=== PATIENT | male | born 1935 | race Caucasian/White ===

== ENCOUNTER 2018-04-06 05:23 | Day surgery (SDC) | payer OTHER ==
[~2018-04-06] VITALS: Ht 182.9 cm; Wt 83.9 kg
--- NOTE | ~2018-04-06 | O ---
[facility] [place] [address] OPERATIVE REPORT Name: FANG LUCIO Room #: DEP [facility].#: [id number] Admission: 04/06/18 Attend Phys: Mao Mcmullen MD Discharge: 04/06/18 Date of : 33 Report #: [id number] THIS REPORT FOR: //name// CC: Eric Mcmullen INFANT CHILDCARE PROVIDER: None. PREOPERATIVE DIAGNOSIS: Bilateral upper lid ptosis with superior visual field defects both eyes. POSTOPERATIVE DIAGNOSIS: Bilateral upper lid ptosis with superior visual field defects both eyes. OPERATION PERFORMED: Bilateral upper lid functional ptosis repair. INFANT CHILDCARE PROVIDER: None. ANESTHESIA: Local with IV sedation. COMPLICATIONS: None. INDICATIONS FOR PROCEDURE: This patient has bilateral upper lid ptosis with superior visual field loss both eyes. Visual field testing demonstrates dense superior visual defects. Retesting with the upper lid elevated shows an improvement in visual field loss of over 30% and in excess of 12 degrees. The current procedure is being undertaken in order to improve the patient's visual function. Informed consent was obtained to include but not limited to the risk of loss of vision, bleeding, infection, scarring, failure to improve the problem and need for further surgery, such as adjustment of lid height. DESCRIPTION OF PROCEDURE: The patient was taken to the operating room, where 2% Xylocaine with epinephrine mixed with equal parts of 0.75% Marcaine with Wydase was administered transcutaneously to each upper lid. The patient was then prepped and draped in the usual sterile fashion. An upper lid crease incision was then made bilaterally and the dissection was carried down until the orbital septum was identified. The orbital septum was then cleared and the preaponeurotic fat identified. The levator aponeurosis was then disinserted from the anterior surface of the tarsal plate and dissected free in the avascular Beaver's muscle plane. The aponeurosis was then advanced and reattached to the anterior surface of the tarsal plate with interrupted mattress 6-0 Novafil sutures on each side, adjusting for height and contour. [address] [address] OPERATIVE REPORT Name: FANG LUCIO Room #: DEP [facility] M.R.#: [id number] Admission: 04/06/18 Attend Phys: Mao Mcmullen MD Discharge: 04/06/18 Date of : 34 Report #: [id number] The redundant aponeurosis was then amputated. The incision was then closed with multiple interrupted 6-0 chromic sutures that were used to recreate an upper lid crease. The skin was closed with a running 6-0 plain gut suture. The wound was then cleaned and dressed with ophthalmic antibiotic ointment followed by a Telfa pad. The patient was transported to the recovery area, having tolerated the procedure well with no anesthesia or operative complications being noted. <ELECTRONICALLY SIGNED> By: Mao Mcmullen MD 04/10/18 0621 5 Mao Mcmullen MD /brandy
[~2018-04-06 05:23] MED LIST: AMOXICILLIN 50500 MG PO; CENTRUM SILVER1 EAC4 PO; CHILDREN'S ASPI81 M1 PO; COREG25 MG PO; ELIQUIS5 MG PO; FISH OIL 1,001000 M2 PO; FLOMAX0.4 MG PO; GLUCOSAMINE &1 EACH PO; IRON325 PO; LISINOPRIL5 MG PO; METAMUCIL1 EAC1 PO; OMEPRAZOLE 20 M20 M1 PO; PACERONE 200 M200 M1 PO; REQUIP 1 MG TABL1 M1 PO; TYLENOL EXTRA500 MG PO; ZOCOR 10 MG TAB10 MG PO
[2018-04-06 07:55] VITALS: BP 113/73
== END 2018-04-06 08:30 | disposition home or self-care (01) ==
LOC: OR 05:23 → TBA 05:23 → OR 08:30
DX: H02.403 Unspecified ptosis of bilateral eyelids (principal); H53.462 Homonymous bilateral field defects, left side; H53.461 Homonymous bilateral field defects, right side; I10 Essential (primary) hypertension; E78.5 Hyperlipidemia, unspecified; G47.33 Obstructive sleep apnea (adult) (pediatric); I25.2 Old myocardial infarction; I42.9 Cardiomyopathy, unspecified; K21.9 Gastro-esophageal reflux disease without esophagitis; E78.00 Pure hypercholesterolemia, unspecified; Z90.49 Acquired absence of other specified parts of digestive tract; Z98.890 Other specified postprocedural states; Z95.0 Presence of cardiac pacemaker; Z87.891 Personal history of nicotine dependence; Z79.899 Other long term (current) drug therapy; Z79.82 Long term (current) use of aspirin
CPT/HCPCS: 50010; 50101; 50386; 50398; 51636; 56528; 56531; 62110; 62850; 70005

== ENCOUNTER 2018-09-01 12:20 | Emergency (ER) | payer OTHER ==
[~2018-09-01] VITALS: Ht 182.9 cm; Wt 81.7 kg
[2018-09-01 12:56] LABS: ABSOLUTE NEUTROPHILS 4.6 thou/uL (1.4-8.2); EOSINOPHILS 3.4 % (0.0-3.0); HEMATOCRIT 38.3 % (42.0-52.0); HEMOGLOBIN 12.7 gm/dL (14.0-18.0); LYMPHOCYTES 22.6 % (24.0-44.0); MCH 29.7 pg (26.0-34.0); MCHC 33.2 g/dL (28.0-37.0); MCV 89.2 fL (80.0-100.0); MONOCYTES 7.9 % (1.0-8.0); PLATELET COUNT 207 thou/uL (150-400); POLYS 65.1 % (36.0-66.0); RDW 13.8 % (10.5-14.5)
[2018-09-01 13:05] LABS: ANION GAP 7 mmol/L (7-16); BUN 19 mg/dL (7-18); CALCIUM 9.6 mg/dL (8.5-10.1); CHLORIDE 104 mmol/L (98-107); CO2 29 mmol/L (21-32); CREATININE 1.3 mg/dL (0.7-1.3); GLUCOSE 134 mg/dL (74-106); POTASSIUM 4.3 mmol/L (3.5-5.1); SODIUM 140 mmol/L (136-145)
[2018-09-01 13:13] LABS: SGOT 25 U/L (15-37); SGPT 31 U/L (30-65); TOTAL BILIRUBIN 0.6 mg/dL (<0.1-1.0); TOTAL PROTEIN 8.1 g/dL (6.4-8.2); TROPONIN-I <0.06 ng/mL (<0.06)
[2018-09-01] MEDS ORDERED: GABAPENTIN 100100 MG PO (13:21)
[2018-09-01] MEDS ORDERED: VALIUM2 MG PO (13:30)
[2018-09-01] MEDS ORDERED: ANTIVERT25 MG PO (13:32)
--- NOTE | 2018-09-01 14:06 | EKG ---
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[place] : 1935 Requested By: Sanchez Ahmadi Order Number: [id number] MD: Sam Gee Measurements Intervals [place] Rate: 51 P: 3 LA: 174 QRS: -44 QRSD: 175 T: 128 QT: 536 QTc: 494 Interpretive Statements Sinus bradycardia Left bundle branch block No previous ECG available for comparison Electronically Signed On 09-01-2018 14:06:21 CDT by Sam Gee [email or web address] ��������������������������������������������� <ELECTRONICALLY SIGNED> ���������������������������������������� By: Sam Gee MD ��������������������������������������������� 09/01/18 1406 1235 1235 Sam Gee MD /EPI
[2018-09-01 14:39] VITALS: BP 135/67
== END 2018-09-01 14:40 | disposition home or self-care (01) ==
LOC: ER 12:20
PROVIDERS: Emergency Medicine
DX: I95.1 Orthostatic hypotension (principal); H81.10 Benign paroxysmal vertigo, unspecified ear; R42 Dizziness and giddiness; K21.9 Gastro-esophageal reflux disease without esophagitis; I10 Essential (primary) hypertension; E78.5 Hyperlipidemia, unspecified; G25.81 Restless legs syndrome; I42.9 Cardiomyopathy, unspecified; G47.30 Sleep apnea, unspecified; Z90.49 Acquired absence of other specified parts of digestive tract; Z87.891 Personal history of nicotine dependence

== ENCOUNTER 2020-02-25 10:15 | Emergency (ER) | payer MEDICARE ==
[~2020-02-25] VITALS: Ht 182.9 cm; Wt 79.4 kg
[~2020-02-25 10:15] MED LIST changes: +ANTIVERT25 MG PO; +NEURONTIN 400M400 M2 PO; +VALIUM2 MG PO
[2020-02-25 10:52] LABS: ABSOLUTE NEUTROPHILS 6.1 thou/uL (1.4-8.2); BASOPHILS 0.6 % (0.0-2.0); EOSINOPHILS 0.5 % (0.0-3.0); HEMATOCRIT 31.8 % (42.0-52.0); HEMOGLOBIN 10.2 gm/dL (14.0-18.0); LYMPHOCYTES 12.7 % (24.0-44.0); MCH 24.7 pg (26.0-34.0); MCHC 32.2 g/dL (28.0-37.0); MCV 76.8 fL (80.0-100.0); MONOCYTES 8.3 % (1.0-8.0); PLATELET COUNT 187 thou/uL (150-400); POLYS 77.9 % (36.0-66.0); RBC 4.14 mil/uL (4.50-6.00); RDW 22.3 % (10.5-14.5); WBC 7.9 thou/uL (4.0-11.0)
[2020-02-25 11:01] LABS: CALCIUM 8.8 mg/dL (8.5-10.1); CREATININE 1.4 mg/dL (0.7-1.3); POTASSIUM 3.9 mmol/L (3.5-5.1)
[2020-02-25 11:07] LABS: ALBUMIN 3.3 g/dL (3.4-5.0); DIRECT BILIRUBIN 0.1 mg/dL (<0.1-0.2); TOTAL BILIRUBIN 0.4 mg/dL (0.2-1.0); TOTAL PROTEIN 7.8 g/dL (6.4-8.2)
[2020-02-25 11:59] LABS: URINE BILIRUBIN NEGATIVE (Negative); URINE BLOOD 3+ (Negative); URINE CLARITY CLEAR; URINE COLOR YELLOW; URINE GLUCOSE-RANDOM* NEGATIVE (Negative); URINE KETONES NEGATIVE (Negative); URINE LEUKOCYTES-REFLEX NEGATIVE (Negative); URINE NITRITE-REFLEX NEGATIVE (Negative); URINE PROTEIN (DIPSTICK) NEGATIVE (Negative); URINE UROBILINOGEN 0.2 E.U./dl (0.2-1.0)
[2020-02-25 12:10] LABS: ANISOCYTOSIS 2+
[2020-02-25 12:11] LABS: MACROCYTES SLIGHT; MICROCYTES 1+; POIKILOCYTOSIS SLIGHT
[2020-02-25 12:12] LABS: OVALOCYTES OCCASIONAL
[2020-02-25 12:20] LABS: HYALINE CASTS 0-3 Few /LPF (None Seen)
[2020-02-25 12:21] LABS: CRYSTALS None Seen /LPF (None Seen); MUCUS 4-6 Moderate strn/LPF (None Seen); URINE RBC >20 Many /HPF (0-2); URINE WBC-REFLEX 0-5 Rare /HPF (0-5)
[2020-02-25 12:23] LABS: BACTERIA-REFLEX 1-9 Few /HPF (None Seen)
[2020-02-25 12:26] LABS: SQUAMOUS 4-10 Moderate /LPF (0-3); TRANSITIONAL EPITHEL CELL 0-3 Few /LPF (None Seen)
[2020-02-25 15:51] VITALS: BP 132/71
--- NOTE | 2020-02-26 04:43 | NUR ---
GRAM + COCCI SUGGESTIVE OF STAPH POSITIVE BLOOD CULTURE CALLED BY HAMZAH IN LAB
[2020-02-26] MEDS ORDERED: MEXILETINE HCL200 M1 PO (13:51)
[2020-02-26] MEDS ORDERED: IRON18 M1 PO ×2 (13:53→13:54)
== END 2020-02-25 15:52 | disposition home or self-care (01) ==
LOC: ER 10:15
PROVIDERS: Emergency Medicine
DX: R50.9 Fever, unspecified (principal); R53.1 Weakness; R25.1 Tremor, unspecified; Z20.828 Contact with and (suspected) exposure to other viral communicable diseases; K21.9 Gastro-esophageal reflux disease without esophagitis; I10 Essential (primary) hypertension; E78.5 Hyperlipidemia, unspecified; I25.2 Old myocardial infarction; Z90.49 Acquired absence of other specified parts of digestive tract; Z79.899 Other long term (current) drug therapy; Z79.82 Long term (current) use of aspirin; Z87.891 Personal history of nicotine dependence

== ENCOUNTER 2020-02-26 10:35 | Inpatient (IN) | payer MEDICARE ==
[~2020-02-26] VITALS: Ht 182.9 cm; Wt 80.3 kg
[2020-02-26] VITALS (7 sets, daily range): BP systolic 93–113; BP diastolic 42–64
[2020-02-26 11:09] LABS: HEMATOCRIT 32.2 % (42.0-52.0); HEMOGLOBIN 10.3 gm/dL (14.0-18.0); MCH 24.3 pg (26.0-34.0); MCHC 31.8 g/dL (28.0-37.0); MCV 76.4 fL (80.0-100.0); PLATELET COUNT 173 thou/uL (150-400); RBC 4.22 mil/uL (4.50-6.00); RDW 22.8 % (10.5-14.5); WBC 8.9 thou/uL (4.0-11.0)
[2020-02-26 11:17] LABS: CALCIUM 8.3 mg/dL (8.5-10.1); CREATININE 1.3 mg/dL (0.7-1.3); POTASSIUM 4.3 mmol/L (3.5-5.1)
[2020-02-26 11:23] LABS: ALBUMIN 3.2 g/dL (3.4-5.0); DIRECT BILIRUBIN 0.2 mg/dL (<0.1-0.2); TOTAL BILIRUBIN 0.7 mg/dL (0.2-1.0); TOTAL PROTEIN 7.8 g/dL (6.4-8.2)
[2020-02-26 11:32] LABS: ABSOLUTE NEUTROPHILS 7.4 thou/uL (1.4-8.2); ANISOCYTOSIS 2+; PLATELET ESTIMATE NORMAL
[2020-02-26 12:01] LABS: URINE BILIRUBIN NEGATIVE (Negative); URINE BLOOD TRACE (Negative); URINE CLARITY CLEAR; URINE COLOR YELLOW; URINE GLUCOSE-RANDOM* NEGATIVE (Negative); URINE KETONES NEGATIVE (Negative); URINE LEUKOCYTES-REFLEX NEGATIVE (Negative); URINE NITRITE-REFLEX NEGATIVE (Negative); URINE PROTEIN (DIPSTICK) 1+ (Negative); URINE SPECIFIC GRAVITY >= 1.030 (1.005-1.035); URINE UROBILINOGEN 0.2 E.U./dl (0.2-1.0)
[2020-02-26 12:23] LABS: BACTERIA-REFLEX 1-9 Few /HPF (None Seen); CASTS None Seen /LPF (None Seen); CRYSTALS None Seen /LPF (None Seen); MUCUS >6 Heavy strn/LPF (None Seen); SQUAMOUS 0-3 Few /LPF (0-3); URINE RBC 0-2 Rare /HPF (0-2); URINE WBC-REFLEX 0-5 Rare /HPF (0-5)
--- NOTE | 2020-02-26 13:42 | EKG ---
[facility] [place] [address] ELECTROCARDIOGRAM REPORT Name: FANG LUCIO Room #: 170-2 ADM IN M.R.#: [id number] Admission: 02/26/20 Attend Phys: Grecia Woods MD Discharge: Date of : 34 Report #: [id number] THIS REPORT FOR: cc: Mat Nair MD, Steven E. 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1935 Requested By: Андрей Farley Order Number: [id number] MD: Sidney Perez Measurements Intervals [place] Rate: 70 P: 39 GA: 213 QRS: -48 QRSD: 176 T: 98 QT: 479 QTc: 517 Interpretive Statements Sinus rhythm Borderline prolonged GA interval Left bundle branch block Compared to ECG 09/01/2018 12:35:27 Sinus bradycardia no longer present Electronically Signed On 02-26-2020 13:42:10 CDT by Sidney Perez [email or web address] <ELECTRONICALLY SIGNED> By: Sidney Perez MD, FAC 02/26/20 1342 1059 1059 Sidney Perez MD, [facility] /EPI
[2020-02-26] MEDS ORDERED: MEXILETINE HCL200 M1 PO (13:51)
[2020-02-26] MEDS ORDERED: IRON18 M1 PO (13:53)
[2020-02-26] MEDS ORDERED: IRON325 M1 PO (13:54)
--- NOTE | 2020-02-26 19:44 | NUR ---
PT ADMIITTED FROM ER FOR FEVER AND BACTEREMIA AT 1500PM, PT IS ISOLATION TO R/O COVID, PT KNOWS HIS NAME , BUT HE IS CONFUSED , PT HAS STARTED IV ABX AND IV FLUID , PT HAS TYLENOL FOR FEVER ABOUT 1600PM, RN HAS REORTED TO NEXT SHIFT TO KEEP EYE ON PT, PT IS HIGH RISK FOR FALL.
[2020-02-27 04:35] VITALS: BP 112/56
--- NOTE | 2020-02-27 05:53 | NUR ---
A/O X 4.FORGETFUL AT TIMES.AFEBRILE.UP WITH ASSIST TO THE BEDSIDE COMMODE.NO BM BUT PASSING FLATUS.VOIDS PER URINAL.PATIENT HAS FREQUENCY VOIDING.COVID NEGATIVE FOR PCR.DR GAFFNEY IS AWARE.NO NEW ORDERS.ALL BLOOD CULTURES ARE GRAM+ COCCI.RODO MENDOZA WAS INFORMED.MONITOR SHOWS SR.POC CONTINUED.
[2020-02-27 05:54] LABS: HEMATOCRIT 31.3 % (42.0-52.0); MCHC 32.1 g/dL (28.0-37.0); MCV 77.8 fL (80.0-100.0); PLATELET COUNT 156 thou/uL (150-400); RBC 4.02 mil/uL (4.50-6.00); RDW 23.1 % (10.5-14.5); WBC 10.5 thou/uL (4.0-11.0)
[2020-02-27 06:15] LABS: CALCIUM 8.2 mg/dL (8.5-10.1); CREATININE 1.6 mg/dL (0.7-1.3); MAGNESIUM 2.2 mg/dL (1.8-2.4); POTASSIUM 4.1 mmol/L (3.5-5.1)
[2020-02-27 07:24] VITALS: BP 112/42
--- NOTE | 2020-02-27 08:57 | NUR ---
PT CARE ASSUMED APPROX 0700. ASSESSMENT CHARTED. PT DENIES PAIN AND SOA. VSS. UP WITH STEADY GAIT AND SBA. IV REPLACED THIS AM AFTER PT DISLODGED FOR NOC RN. PT CARE TRANSFERRED TO 3W RN. NO DISTRESS NOTED.
[2020-02-27 09:55] LABS: ABSOLUTE NEUTROPHILS 8.9 thou/uL (1.4-8.2)
[2020-02-27 09:56] LABS: ANISOCYTOSIS 2+; OVALOCYTES FEW
[2020-02-27 11:09] VITALS: BP 127/57
--- NOTE | 2020-02-27 13:48 | 2DMMODE ---
[facility] [place] [address] 2 D/M-MODE ECHOCARDIOGRAM Name: FANG LUCIO Room #: 351-P ADM IN M.R.#: [id number] Admission: 02/26/20 Attend Phys: Grecia Woods MD Discharge: Date of : 34 Report #: [id number] THIS REPORT FOR: cc: Mat Nair MD, Steven E. MD Park, Jin S. MD ~ APPROVED REPORT Study performed: 02/27/2020 12:51:37 EXAM: Comprehensive 2D, Doppler, and color-flow Echocardiogram Patient Location: Bedside Room #: [facility] Status: routine BSA: 1.99 HR: 71 bpm BP: 100/49 mmHg Rhythm: Paced/Irregular/PVCs Other Information Study Quality: Adequate Indications Bacteremia. Hx: ND, cardiomyopathy, AICD, HTN. 2D Dimensions RVDd: 37.83 mm IVSd: 10.52 (7-11mm) LVOT Diam: 22.29 (18-24mm) LVDd: 54.82 mm PWd: 10.75 (7-11mm) Ascending Ao: 38.26 (22-36mm) LVDs: 48.39 (25-40mm) Aortic Root: 38.03 mm Volumes Left Atrial Volume (Systole) Single Plane 4CH: 79.59 mL Single Plane 2CH: 67.24 mL LA ESV Index: 41.00 mL/m2 Aortic Valve AoV Peak Moisés.: 2.29 m/s AO Peak Gr.: 20.94 mmHg LVOT Max P.28 mmHg AO Mean Gr.: 12.48 mmHg AO V2 Mean: 1.69 m/s LVOT Max V: 1.03 m/s [facility] [address] [place] [address] 2 D/M-MODE ECHOCARDIOGRAM Name: FANG LUCIO Room #: 351-[facility]#: [id number] Admission: 02/26/20 Attend Phys: Jeanie Cota Discharge: Date of : 34 Report #: [id number] AO V2 VTI: 42.90 cm ROSANNA Vmax: 1.76 cm2 Mitral Valve MV Decel. Time: 122.94 ms MV E Max Moisés.: 1.28 m/s Pulmonary Valve PV Peak Moisés.: 1.03 m/s PV Peak Gr.: 4.27 mmHg Tricuspid Valve TR Peak Moisés.: 3.25 m/s RAP Estimate: 5.00 mmHg TR Peak Gr.: 42.15 mmHg PA Pressure: 47.00 mmHg Left Ventricle The left ventricle is normal size. Regional wall motion abnormalities are noted. There is hypokinesis of the inferior wall. There is normal left ventricular wall thickness. Left ventricular systolic function is moderate to severely decreased. LVEF is 35%. This study is not technically sufficient to allow evaluation of the LV diastolic function. Right Ventricle The right ventricle is normal size. The right ventricular systolic function is normal. Device lead is present in the right ventricle. Atria Left atrium is dilated. The right atrium size is normal. Aortic Valve Aortic valve is moderately calcified. Trace aortic regurgitation. There is mild valvular aortic stenosis. Calculated aortic valve area is 1.8 cm2 with maximum pressure gradient of 21 mmHg and mean pressure gradient of 12 mmHg. Mitral Valve The mitral valve is normal in structure. Mild mitral regurgitation. Tricuspid Valve The tricuspid valve is normal in structure. Mild tricuspid regurgitation. Estimated PAP is 45-50mmHg. Pulmonic Valve The pulmonary valve is normal in structure. Mild pulmonic [facility] [address] [place] [address] 2 D/M-MODE ECHOCARDIOGRAM Name: FANG ERICK Room #: 351-P [facility] IN M.R.#: [id number] Admission: 02/26/20 Attend Phys: Jeanie Cota Discharge: Date of : 34 Report #: [id number] regurgitation. Great Vessels Ascending aorta and aorta root both measure at the upper limits of normal. IVC is normal in size and collapses >50% with inspiration. Pericardium There is no pericardial effusion. <Conclusion> The left ventricle is normal size. Left ventricular systolic function is moderate to severely decreased. The right ventricle is normal size. Device lead is present in the right ventricle. Left atrium is dilated. There is mild valvular aortic stenosis. Mild mitral regurgitation. Mild tricuspid regurgitation. Estimated PAP is 45-50mmHg. <ELECTRONICALLY SIGNED> By: Paresh Michel MD 02/27/20 1348 1348 1348 Paresh Michel MD /INF
[2020-02-27 15:58] VITALS: BP 122/63
--- NOTE | 2020-02-27 19:20 | NUR ---
Report given to nurse in its entirety. Pt's called and alerted to room change. IV fluids d/c'd oncoming nurse will restart. Pt transferred to 462 by wc/KIRSTEN
[2020-02-27 19:35] VITALS: BP 138/84
[2020-02-28 04:35] LABS: HEMATOCRIT 28.4 % (42.0-52.0); HEMOGLOBIN 9.1 gm/dL (14.0-18.0); MCH 24.5 pg (26.0-34.0); MCHC 31.9 g/dL (28.0-37.0); MCV 76.8 fL (80.0-100.0); RBC 3.7 mil/uL (4.50-6.00); RDW 22.8 % (10.5-14.5); WBC 9.3 thou/uL (4.0-11.0)
[2020-02-28 04:41] LABS: CALCIUM 8.1 mg/dL (8.5-10.1); CREATININE 1.1 mg/dL (0.7-1.3); POTASSIUM 3.8 mmol/L (3.5-5.1)
[2020-02-28 07:16] VITALS: BP 147/73
--- NOTE | 2020-02-28 07:53 | NUR ---
Assumed pt care at 1900. A/OX2 pleasantly confused,impulsive and keeps getting up w/o calling for help several times through out the night. Denies pain on assessment. Temp 99.5 at HS medicated with Tylenol with relief 98.3. Pt continent of B&B. Pacemaker in place. Pt got up and got dressed at night looking for the and outside the hallway redirected several times with some success. Fall precautions in place,though pt observed turning bed alarm off,fall safety reinforced frequently. Pt to have a BRENDON this morning.
[2020-02-28 08:05] VITALS: BP 138/84
--- NOTE | 2020-02-28 08:10 | NUR ---
ASSUMED CARE OF PATIENT AT SHIFT CHANGE. ASSESSMENT CHARTED. PATIENT SCHEDULED TO GO DOWN FOR ECHO THIS AM; CURRENTLY NPO EXCEPT FOR SMALL SIPS OF COFFEE. PATIENT FOUND IN ROOM SITTING IN BED TRIGGERING BED ALARM; PATIENT IS VERY IMPULSIVE, A&OX3-4 WITH SOME FORGETFULNESS. DENIES PAIN. UP SBA W NO ISSUES. PATIENT LEFT UNIT FOR PROCEDURE AT APPROX. 0800. FOR PROCEDURE, CONSENT SIGNED
--- NOTE | 2020-02-28 09:14 | NUR ---
PT SLEEPING OFF AND ON. AWAKENS EASILY. PACED RHYTHM ON MONITOR.
[2020-02-28 11:36] VITALS: BP 117/66
--- NOTE | 2020-02-28 15:28 | NUR ---
TRANSESOPHAGEAL ECHO COMPLETED THIS MORNING. PATIENT IS SITTING COMFORTABLY IN CHAIR W AT BEDSIDE. AMBULATES TO THE BATHROOM W NO ISSUES. ABX THX CONTINUED. FALL PRECAUTIONS IN PLACE. WILL CONTINUE TO MONITOR
--- NOTE | 2020-02-28 15:51 | NUR ---
INITIAL ASSESSMENT: SW reviewed chart and spoke with nursing and attending physician. Pt was admitted from home due to fever. Pt was placed in Enhanced Isolation on 3W upon admission. Pt had two negative COVID test. Enhanced precautions discontinued. Pt moved to 4W from 3W. Pt is currently on IV abx. Pt had BRENDON this morning. SW met with pt and at bedside. Introduced role of SW. Pt is alert/orientated to self and place. Pt with hx of dementia. Pt and spouse live at home. No steps on main level of home. There are steps down to the basement. Pt does not need to go to the basement. No use of DME prior to admission. No hx of HH services or post-acute placement. Pt's PCP is Dr. Mat Nair. SW discussed possible discharge needs: home health. Pt and spouse are agreeable with HH if needed. Plan is for pt to return home when medically stable. SW is following to assist as needed with discharge planning.
[2020-02-28 19:11] VITALS: BP 148/71
--- NOTE | 2020-02-28 19:17 | NUR ---
I AGREE WITH NURSING ASSESSMENT AND NURSING NOTE DONE BY HERMAN/ROVING CARRIER.
[2020-02-29 05:44] VITALS: BP 140/71
[2020-02-29 07:44] VITALS: BP 152/95
--- NOTE | 2020-02-29 07:46 | NUR ---
ASSUMED PT CARE AROUND 1930. RECEVICED PT VERY IMPULSIVE AND RESTLESS TO GET UP AND DOWN THE CHAIR WITHOUT ASSISTANCE. ALERT TO SELF WITH MI'KMAQ. IN THE BEGINNING OF THE SHIFT, PT WAS VERY ACCEPTING OF NURSING CARE AND SOMEHOW FOLLOWS VERBAL COMMANDS ADEQUATELY. NIGHT PROGRESSED, PT BECAME VERY AGGRESIVE TOWARDS STAFF AND TRIED TO PHYSICALLY ATTACT NURSING STAFF. PASTRY BAKER AT BEDSIDE. NEW ORDER RECEIVED AND ADMINISTERED WITH LITTIE RELIEF. PT WAS USING TOILET TOO OFTEN TO URINATE AND BEGAN TO MOAN WHILE GRABBING PT'S PENIS. BLADDER SCANNED WITH 485CC RETAINING. CALLED WOODWINDS TEACHER AND STRAIGHT CATHED WITH 650CC OUT. PER WOODWINDS TEACHER REPEAT BLADDER SCAN IN 6HR. ENDORSED TO AM RN. PAIN MEDS GIVEN PER PT DECLINED PO MEDS. ONE TIME IV PAIN MED GIVEN WITH MINIMAL RELIEF. CARE TRANSFERRED TO AM RN AT THIS TIME.
--- NOTE | 2020-02-29 12:03 | NUR ---
Patient's asked about resuming home medication, Dr. Dunaway is aware of it.
[2020-02-29 15:23] VITALS: BP 145/68
[2020-02-29 18:09] VITALS: BP 117/64
--- NOTE | 2020-02-29 18:44 | NUR ---
The noticed the patient had red color output in the urine bag, reported to the staff. Patient denied pain, no soa, vital checked, see the chart; talked to Dr. Briones, followed the orders: the staff emptied the urine bag, which was 500 ml, red color at 1755; begin normal saline infusion 100ml/hr. will pass it on to the weight shifter.
--- NOTE | 2020-02-29 18:46 | NUR ---
will talk to the night nurse about night medication administration of blood thinner.
[2020-02-29 19:38] VITALS: BP 131/66
--- NOTE | 2020-03-01 00:04 | NUR ---
ASSUMED CARE OF PT AT 1900. PT IS A/O X2 AND UP SBA TO THE TOILET. URINARY CATHETER IN PLACE, AND DRAINING WITH A RED TINGED COLOR. PT C/O PAIN. PRN PAIN MEDICATION GIVEN DIRECTED. AT THIS TIME PT IS LYING IN HIS BED AND APPEARS TO BE SLEEPING. FALL PRECAUTIONS ARE IN PLACE, CALL LIGHT IS WITHIN REACH. WILL CONTINUE TO MONTOR.
[2020-03-01 07:30] VITALS: BP 122/62
[2020-03-01 08:35] LABS: HEMATOCRIT 27.7 % (42.0-52.0); MCH 24.5 pg (26.0-34.0); MCHC 32.4 g/dL (28.0-37.0); MCV 75.8 fL (80.0-100.0); RBC 3.66 mil/uL (4.50-6.00); RDW 22.8 % (10.5-14.5); WBC 7.4 thou/uL (4.0-11.0)
--- NOTE | 2020-03-01 15:07 | NUR ---
Assumed care of pt. at 0700. Pt. was calm and cooperative. Pt. did not complain of any current pain. Patient was able to ambulate to his chair with maximum support. His gait appeared to be unsteady. Pt. slept most of the day. Pt. attempted to have BM before suppository was given, and was successful in this attempt. Suppository was returned. Fall precautions in place.
[2020-03-01 15:53] VITALS: BP 140/61
[2020-03-01 20:04] VITALS: BP 135/71
--- NOTE | 2020-03-02 02:18 | NUR ---
ASSUMED CARE OF PT AT 1900. PT IS A/O X3 AND UP WITH ASSIST X1. WEBB IN PLACE AND DRAINING APPROPRIATELY. NO C/O PAIN OR DISCOMFORT. AT THIS TIME, PT IS LYING IN HIS BED AND APPEARS TO BE SLEEPING. FALL PRECAUTIONS ARE IN PLACE, CALL LIGHT IS WITHIN REACH. WILL CONTINUE TO MONITOR.
[2020-03-02 06:05] LABS: HEMATOCRIT 29.1 % (42.0-52.0); HEMOGLOBIN 9.3 gm/dL (14.0-18.0); MCH 24.4 pg (26.0-34.0); MCHC 32.1 g/dL (28.0-37.0); RBC 3.83 mil/uL (4.50-6.00)
[2020-03-02 06:18] LABS: CALCIUM 8.3 mg/dL (8.5-10.1); CREATININE 1.3 mg/dL (0.7-1.3)
[2020-03-02 06:49] LABS: % SATURATION 8 % (20-39); IRON 18 ug/dL (65-175); TIBC 222 ug/dL (250-450)
[2020-03-02 07:27] LABS: FERRITIN 139 ng/mL (26-388)
[2020-03-02 10:20] VITALS: BP 148/64
--- NOTE | 2020-03-02 13:30 | NUR ---
Assumed care of patient at 0700. Patient calm and cooperative. Pt. states he feels stuck and as though he is declining while stuck in bed. Physician ordered removal of catheter, catheter removed. Patient then walked w/ walker and gait belt for a full and unimpeded lap with minimal assistance and no stops. Shortly after the walk, patient had a large/solid BM. Physician notofied of progress, no orders given. Fall precautions in place.
[2020-03-02 16:05] VITALS: BP 166/75
[2020-03-02 19:36] VITALS: BP 138/86
--- NOTE | 2020-03-03 03:43 | NUR ---
ASSUMED PT CARE AUDREY 1930. AXOX3 WITH INTERMITTENT CONFUSION. DOES NOT LIKE TO BE TOLD TO STAY IN CHAIR. KNOWS HOW TO TURN OFF THE BED ALARM WITHOUT NURSING ASST. EDUCATED ON HOW IMPORTANT IT IS TO REQUEST FOR HELP. PLACED NEAR NURSING STATION FOR CLOSE OBSERVATION. ABLE TO VOID POST CATH REMOVAL. NO S/S ACUTE DISTRESS NOTED OR REPORTED AT THIS TIME. WILL CONT TO MONITOR FOR ANY CHANGES IN CONDITION.
[2020-03-03 05:50] LABS: HEMATOCRIT 27.8 % (42.0-52.0); MCH 24.7 pg (26.0-34.0); MCHC 32.3 g/dL (28.0-37.0); MCV 76.3 fL (80.0-100.0); RBC 3.65 mil/uL (4.50-6.00); RDW 23.7 % (10.5-14.5); WBC 8.3 thou/uL (4.0-11.0)
[2020-03-03 05:57] LABS: CALCIUM 8.7 mg/dL (8.5-10.1); CREATININE 1.3 mg/dL (0.7-1.3); POTASSIUM 3.3 mmol/L (3.5-5.1)
--- NOTE | 2020-03-03 07:44 | NUR ---
Assumed patient care at 0715. Vital signs stable with a slight temperature of 99.1, LSCTA, BS x's 4, ABD distended (he is passing flatus), skin is clean, warm, dry and intact; no subjective/objective signs of pain or discomfort, Patient resting in chair this am, slept in chair all noc.
--- NOTE | 2020-03-03 19:20 | NUR ---
PT WITH POSS ENDOCARDITIS, PT TO HAVE TESTING DONE 03/04/20 TO CONFIRM. PT UP EATING DINNER WHEN DISCUSSED WITH PT CAN BE CONFUSED. AND PT OK WITH PICC PLACEMENT ON 03/04 AND WANTS TO SPEAK WITH CASE MANAGEMENT TO DISCUSS IV ABX OPTIONS. PT HAS A LT PACEMAKER.
[2020-03-03 20:05] VITALS: BP 150/70
--- NOTE | 2020-03-04 05:27 | NUR ---
ASSUMED PT CARE AROUND 1930. AXOX2. IMPULSIVE TO GET UP. KNOWS HOW TO TURN OFF CHAIR ALARM. GETS SUPER UPSET WHEN BED ALARM WENT OFF. TRIED TO EXPLAIN IMPORTACNE OF BED ALARM AND SAFETY, PT "DOES NOT CARE". NO S/S ACUTE DISTRESS NOTED OR REPORTED AT THIS TIME. WILL CONT TO MONITOR FOR ANY CHANGES IN CONDITION.
[2020-03-04 07:30] VITALS: BP 152/73
--- NOTE | 2020-03-04 09:55 | NUR ---
SPOKE WITH , SHE PREFERS PICC PLACED PRIOR TO DISCHARGE SO PT WILL NOT PULL IT OUT. RN WILL CALL IV TEAM WHEN DISCHARGE IS DEFINITE.
--- NOTE | 2020-03-04 11:15 | NUR ---
Patient had low fever this am at 8:30, 99.2 F, PRN Acetaminophen given at 0850, patient temprature is 97.9 now.
--- NOTE | 2020-03-04 13:28 | NUR ---
PT HAVING INDUIM SCAN THIS AFTERNOON AT 1600. STAFF HAD INDICATED THAT THEY WOULD DO A FOLLOW UP SCAN TOMORROW AT 1600 WELL. CARE TEAM HAD INDICATED THAT PT WOULD NEED HOME INFUSION FOR IV ABX UPON DC AND HH SERVICES. CM CALLED AND SPOKE WITH PT'S SPOUSE THIS AM. SHE INDICATED NO PREFERENCE FOR PROVIDERS. CM FA[facility]ED REFERRAL TO [facility] INDICATED THAT PT HAD MEDICARE PART D AND BCBS. COPAY FOR DRUG IS $222.25 PER WEEK. BCBS FOR SUPPLIES. NO DEDUCTIBLE. OUT OF POCKET $5,500. WITH $26.38 MET. COVERAGE IS 80/20 UNTIL OOP IS MET. DAILY SUPPLY COST IS $9.00 BUT THEY WILL BILL INSURANCE. OOP HAS LIKELY BEEN MET WITH THIS HOSPITAL STAY. MEDICATION WOULD GO CONTINUOUSLY ON 24 HOUR BALL. CM MET WITH PT AND SPOUSE AT BEDSIDE THIS MORNING AND EXPLAINED ALL OF THIS. THEY EXPRESSED UNDERSTANDING. CM INIDICATED THAT BEDSIDE TEACH WOULD BE DONE PRIOR TO DC. CM TO FOLLOW INDICATED WITH DC PLANNING.
--- NOTE | 2020-03-04 15:14 | NUR ---
Nutrition: pt admitted with bacteremia, source unknown. Suspected endocarditis and to undergo indium scan today/tomorrow. Pt has a good appetite if he enjoys the meals. has been ordering for him. Obtained additional food preferences. Low Fe-38, on ferrous sulfate. Stable weights. Plan D/C soon. Low nutrition risk.
[2020-03-04 17:03] VITALS: BP 149/71
[2020-03-04 19:24] VITALS: BP 134/73
--- NOTE | 2020-03-05 00:51 | NUR ---
ASSUMED CARE OF PT AT 1900. PT IS A/O X2 AND UP SBA TO THE TOILET. C/O WANTING TO HURRY UP AND GET OUT OF HERE SOON. REQUESTS TO WALK AROUND OFTEN TO GET UP AND EXCERSISE. VSS. NO C/O OF PAIN OR DISCOMFORT. VOIDS PER URINAL. AFEBRILE. AT THIS TIME PT IS LYING IN HIS BED AND APPEARS TO BE SLEEPING. FALL PRECAUTIONS ARE IN PLACE, CALL LIGHT IS WITHIN REACH. WILL CONTINUE TO MONITOR.
[2020-03-05 08:10] VITALS: BP 155/81
[2020-03-05 10:29] VITALS: BP 155/81
--- NOTE | 2020-03-05 15:27 | NUR ---
PT HAD REPEAT INDIUM SCAN AROUND NOON TODAY. STILL NO RESULTS OF THIS NOTE. IT IS ANTIPATED THAT PT WILL DISCHARGE HOME TOMORROW WITH DAILY [facility] AND [facility]. CM SPOKE WITH PT AND SPOUSE AND THEY ARE AWARE AND AGREEABLE. PT TO HAVE PICC PLACE DAY OR DISCHARGE. MARGA WITH [facility] IS AWARE THAT BEDSIDE TEACH WILL BE DONE TOMORROW.
[2020-03-05 16:20] VITALS: BP 164/86
--- NOTE | 2020-03-05 18:22 | NUR ---
ASSUMED CARE OF SHIFT CHANGE. ASSESSMENT CHARTED; MEDS GIVEN PER MAR; BP MEDS ADMINISTERED INDICATED. PATIENT IS A&OX3-4, UP SBA TO BR. PATIENT WENT FOR AN INDIUM SCAN A RE-EVAL FOR DISCHARGE. ABX INFUSING ON L FA W NO ISSUES. PICC TO BE PLACED TOMORROW PRIOR TO DISCHARGE, "IS READY TO LEAVE". FALL PRECAUTIONS IN PLACE. SPOUSE AT BEDSIDE, WILL CONTINUE TO MONITOR AND FOLLOW PLAN OF CARE
[2020-03-05 19:31] VITALS: BP 132/66
--- NOTE | 2020-03-05 19:45 | NUR ---
PATIENT FOUND W NO WEBB; NO D/C ORDER IN BUT HX OF WEBB CHARTED. PATIENT VOIDS WELL TO BR W NO ISSUES
--- NOTE | 2020-03-06 04:10 | NUR ---
patient aox4 makes needs known. patient is stand by assist with adl,transfer, toileting and bed mobility. patient denied pain or discomfort. patient ambulates in the hallway and bathroom with steady gaits.patient knowns how to disconnect bed and chair alarm. patient in bed asleep at this time breathing regular and unlaboured.
[2020-03-06 05:56] LABS: HEMATOCRIT 24.4 % (42.0-52.0); HEMOGLOBIN 7.8 gm/dL (14.0-18.0); MCH 24.4 pg (26.0-34.0); MCHC 32.1 g/dL (28.0-37.0); MCV 76.1 fL (80.0-100.0); RBC 3.21 mil/uL (4.50-6.00); RDW 24.1 % (10.5-14.5); WBC 6.7 thou/uL (4.0-11.0)
[2020-03-06 07:12] LABS: ALBUMIN 2.2 g/dL (3.4-5.0); CREATININE 1.3 mg/dL (0.7-1.3); MAGNESIUM 2.2 mg/dL (1.8-2.4); TOTAL BILIRUBIN 0.9 mg/dL (0.2-1.0); TOTAL PROTEIN 6.7 g/dL (6.4-8.2)
[2020-03-06 07:18] LABS: POTASSIUM 2.7 mmol/L (3.5-5.1)
--- NOTE | 2020-03-06 07:23 | NUR ---
CRITICAL LAB OF 2.7 CALLED BY DERIAN CALLED AT APPROX. [phone]. HOSPITALIST DEPUTY SHERIFF PAGED AT APPROX. [phone]
[2020-03-06 07:37] VITALS: BP 152/83
[2020-03-06 09:54] VITALS: BP 152/83
[2020-03-06] MEDS ORDERED: KLOR-CON M2020 MEQ PO (11:20)
--- NOTE | 2020-03-06 11:21 | NUR ---
MIDLINE PLACED IN PATIENT BY CERTIFIED RN. PAGED ID PROVIDER
[2020-03-06 13:34] VITALS: BP 152/83
--- NOTE | 2020-03-06 13:35 | NUR ---
CARE TEAM INDICATED THAT PT IS MEDICALLY STABLE TO DISCHARGE HOME THIS DAY. [facility] HAS BEEN ARRANGED AND PT AND SPOUSE ARE AREA AND AGREEABLE WITH SERVICES. DIONICIO ANTON IS HERE AND PROVIDED BEDSIDE TEACH TO PT AND SPOUSE. PT IS TO HAVE [facility] HH. CM FAXED ORDERS TO HH AND HOME INFUSION AND CONFIRMED RECEIPT. NO OTHER CM INTERVENTION INDICATED. CASE CLOSED. PT'S SPOUSE IS TO PROVIDE TRANPORT HOME THIS DAY. NO OTHER CM INTERVENTION INDCIATED. CASE CLOSED.
--- NOTE | 2020-03-06 13:41 | NUR ---
CONSULTED TO PLACE A PICC. DISCUSSED WITH THE PATIENT AND . CONSENT WAS NOTED TO BE SIGNED. A #4F SINGLE LUMEN POWER PICC WAS ATTEMPTED PER HOSPITAL POLICY AFTER A BEDSIDE TIMEOUT WAS COMPLETED. THE RIGHT BASILIC WAS WIDLEY PATIENT. UNABLE TO ADVANCE PICC TO SVC ON MULTIPLE ATTEMPTS. LINE TRIMMED A MIDLINE AND PLACED. UNABLE TO ATTEMPT THE LEFT ARM DUE TO PACEMAKER. THE PATIENTS NURSE WAS UPDATED AND VAT RECOMMENDED SHE NOTIFY DR. GAFFNEY OF MIDLINE ACCESS. IF A PICC IS NECESSARY THE PATIENT WILL HEMA TO GO TO IR FOR PLACEMENT. LINE SECURED AND RELEASED FOR USE
--- NOTE | 2020-03-06 13:42 | NUR ---
ASSUMED PATIENT CARE AT SHIFT CHANGE. ASSESSMENT CHARTED. MEDICATIONS ADMINISTERED PER MAR W ASSIST FROM STUDENT NURSE. VSS. DENIES PAIN. SPOUSE AT BEDSIDE. PATIENT RECIEVED 1ST ROUND OF ABX THIS AM ON R AC PERIPHERAL IV; DC'D AFTER MIDLINE PLACED ON R UPPER ARM BY DIGITAL DATA ANALYST. ABX INFUSING ON NEW SITE W NO ISSUES. PATIENT REMAINS MEDICALLY STABLE TO DISCHARGE BACK HOME W HOME HEALTH. EDUCATION FOR HOME INFUSION ABX THX. DISCHARGE IS ORDERED. FALL PRECAUTIONS REMAIN IN PLACE. WILL CONTINUE TO MONITOR AND FOLLOW PLAN OF CARE.
[2020-03-06 15:46] VITALS: BP 152/64
== END 2020-03-06 15:58 | disposition home health service (06) | DRG 871 ==
LOC: ER 10:35 → 4W 12:28 → 3W 12:28 → EROBS 12:28 → 3W 14:43 → 4W 02-27 18:39
PROVIDERS: Emergency Medicine; Hospitalist; Nurse Practitioner; Nurse Practitioner Family; ADMIT Hospitalist; ATTEND Hospitalist
PROC: 05HB33Z Insertion of Infusion Device into Right Basilic Vein, Percutaneous Approach (ICD-10-PCS; principal; 2020-03-06)
DX: A41.9 Sepsis, unspecified organism (principal); N17.0 Acute kidney failure with tubular necrosis; I42.9 Cardiomyopathy, unspecified; J98.11 Atelectasis; E44.0 Moderate protein-calorie malnutrition; E87.1 Hypo-osmolality and hyponatremia; I48.91 Unspecified atrial fibrillation; K21.9 Gastro-esophageal reflux disease without esophagitis; I10 Essential (primary) hypertension; E78.5 Hyperlipidemia, unspecified; G25.81 Restless legs syndrome; G62.9 Polyneuropathy, unspecified; F03.90 Unspecified dementia, unspecified severity, without behavioral disturbance, psychotic disturbance, mood disturbance, and anxiety; Z66 Do not resuscitate; G47.33 Obstructive sleep apnea (adult) (pediatric); G47.00 Insomnia, unspecified; D50.9 Iron deficiency anemia, unspecified; R63.4 Abnormal weight loss; I25.10 Atherosclerotic heart disease of native coronary artery without angina pectoris; N40.1 Benign prostatic hyperplasia with lower urinary tract symptoms; R33.8 Other retention of urine; K59.00 Constipation, unspecified; E87.6 Hypokalemia; Z20.828 Contact with and (suspected) exposure to other viral communicable diseases; I25.2 Old myocardial infarction; Z95.810 Presence of automatic (implantable) cardiac defibrillator; Z94.9 Transplanted organ and tissue status, unspecified; Z79.899 Other long term (current) drug therapy; Z79.82 Long term (current) use of aspirin; Z87.891 Personal history of nicotine dependence; Z68.24 Body mass index [BMI] 24.0-24.9, adult
CPT/HCPCS: 10040; 10045; 10879; 27000